=== PATIENT | male | born 1960 | race Caucasian/White ===

== ENCOUNTER → 2020-04-24 | Day surgery (SDC) | payer OTHER ==
[~2020-04-24] MED LIST: NORCO 5-325 TA1 EACH PO
[2020-04-24 07:35] LABS: HCT 43.5 % (42.0-52.0); HGB 14.4 g/dl (13.2-18.0); MCHC 33.1 g/dL (32.0-36.0); MCV 90.6 fL (78.0-100.0); MPV 9.9 fL (6.0-9.5); RBC 4.8 M/uL (4.70-6.00); RDW 13.8 % (11.5-14.0); WBC 6.4 K/uL (4.0-10.5)
[2020-04-24 08:02] LABS: ALBUMIN 3.9 g/dL (3.4-5.0); BUN/CREAT RATIO (CALC) 20.7 RATIO; CREATININE 0.82 mg/dL (0.67-1.17); GLOBULIN (CALCULATION) 3.8 g/dL; TOTAL PROTEIN 7.7 g/dL (6.4-8.2)
== END | disposition home or self-care (01) ==
LOC: FAS 06:50
PROVIDERS: Surgery
DX: Z12.11 Encounter for screening for malignant neoplasm of colon (principal); Z87.891 Personal history of nicotine dependence
CPT/HCPCS: 36415; 80053; J2250; J7120